=== PATIENT | male | born 1995 | race Caucasian/White ===

== ENCOUNTER 2016-11-27 18:40 | Emergency (ER) | payer OTHER ==
[2016-11-27 18:45] VITALS: BP 132/69; PULSE 70; RESP 16; TEMP 98.4; O2SAT 98
--- NOTE | 2016-11-27 19:22 | EDPHY ---
H & P HPI/ROS: Chief complaint: Right ring finger laceration History of present illness: This is a 21-year-old male who presents to the emergency department for evaluation of a right ring finger laceration. Patient reports he cut his finger on a broken glass at work this evening. He reports he has noted a skin flap. Pain with bleeding but it has been controlled with a dressing. No report of abnormal coolness or paresthesias in the finger. No other injuries reported. His tetanus is up-to-date. Smoking Status: Current every day smoker Physical Exam: General: Alert, nontoxic Skin: Avulsion of skin off the lateral aspect of the tip of the right ring finger. This is very superficial in nature. Flap is likely not viable. Musculoskeletal: Patient is flexing and extending his right ring finger in the DIPJ, PIP and MCP joint well. Vascular: Capillary refill brisk in the right ring finger. Neurologic: Sensation intact using light touch and two-point discrimination. Constitutional: Initial Vital Signs Temperature (C) 36.9 C 11/27/16 18:43 Heart Rate 70 11/27/16 18:43 Respiratory Rate 16 11/27/16 18:43 Blood Pressure 132/69 H 11/27/16 18:43 O2 Sat (%) 98 11/27/16 18:43 O2 Delivery Mode Room Air Allergies/Adverse Reactions: No Known Allergies Allergy (Unverified 11/27/16 18:42) Home Medications: Medication Instructions Recorded NK [No Known Home Meds] 11/27/16 MDM/Departure - MDM Procedures: Procedure: Laceration repair. Verbal consent was obtained from the patient. The 1 cm avulsion on the right ring finger was anesthetized in the usual fashion. The wound was irrigated, draped and explored to its base with a gloved finger. There were no deep structures involved. No tendon injury was identified. The wound was repaired with 5 0 Prolene, 3 simple interrupted sutures. The wound repair was simple. The procedure was performed by myself. ED Course/Re-evaluation: Patient seen under the supervision of my secondary supervising physician Dr. Oniel Henderson. Patient presents to the emergency department for a laceration to his right ring finger. Evaluation reveals an avulsion of a small amount of skin to the lateral aspect of the tip of the finger. The flap is likely not viable. No deep structure involvement or foreign body contamination is identified. Wound is anesthetized, cleaned and the flap is tacked down with sutures. I have discussed with him the flap will likely not remain but will provide a biologic Band-Aid while the wound heals. He is asked to follow up with worker's compensation for recheck. Home care is discussed. Return precautions are given. Patient voiced understanding and agreement with plan. - Depart Disposition: Home, Routine, Self-Care Clinical Impression: Finger laceration Qualifiers: Encounter type: initial encounter Finger: ring finger Damage to nail status: without damage Foreign body presence: without foreign body Laterality: right Qualified Code(s): S61.214A - Laceration without foreign body of right ring finger without damage to nail, initial encounter Condition: Good Instructions: Finger Laceration (ED), Acute Wounds (ED) Additional Instructions: Follow-up with worker's compensation for recheck Stitches to be removed in 7 days If symptoms worsen or new symptoms develop return to the emergency room for recheck Referrals: NONE *PRIMARY CARE P,. [Primary Care Provider] - As per Instructions Britton Ferris MD [Medical Doctor] - As per Instructions
== END 2016-11-27 20:00 | disposition home or self-care (01) ==
PROC: 0HQFXZZ Repair Right Hand Skin, External Approach (ICD-10-PCS; principal; 2016-11-27)
DX: S61.214A Laceration without foreign body of right ring finger without damage to nail, initial encounter (principal); F17.200 Nicotine dependence, unspecified, uncomplicated; W25.XXXA Contact with sharp glass, initial encounter; Y92.69 Other specified industrial and construction area as the place of occurrence of the external cause; Y99.0 Civilian activity done for income or pay; Y93.89 Activity, other specified